=== PATIENT | female | born 1930 | race Caucasian/White ===

== ENCOUNTER 2016-10-04 22:23 | Inpatient (IN) ==
[2016-10-05 00:34] LABS: Basophils # 0.1 K/mcL (0.0-0.2); Basophils % 0.4 %; Eosinophils # 0.1 K/mcL (0.0-0.6); Eosinophils % 0.9 %; Hematocrit 38.4 % (35.3-44.9); Hemoglobin 12.7 g/dL (11.5-15.4); INR 1.1; Immature Granulocytes % 0.5 % (0-4); Lymphocytes # 1.4 K/mcL (0.6-4.6); Lymphocytes % 9.1 %; Mean Corpuscular HGB Conc 33.1 g/dL (31.6-35.5); Mean Corpuscular Hemoglobin 30.8 pg (28.0-33.3); Mean Corpuscular Volume 93.2 fL (83.0-100.0); Monocytes # 0.9 K/mcL (0.0-1.3); Monocytes % 5.6 %; Neutrophils # 12.6 K/mcL (1.6-8.9); Platelet Count 219 K/mcL (140-400); Prothrombin Time 12.1 Seconds (9.4-12.1); Red Blood Count 4.12 M/mcL (3.82-4.97); Red Cell Distribution Width 13.6 % (11.5-14.5); Segmented Neutrophils % 83.5 %
[2016-10-05 00:40] LABS: Calcium 9.5 mg/dL (8.6-10.8)
--- NOTE | 2016-10-05 01:33 | Emergency Department Note ---
Disposition Clinical Impression: Hip fracture Qualifiers: Encounter type: initial encounter Fracture type: closed Laterality: right Qualified Code(s): S72.001A - Fracture of unspecified part of neck of right femur, initial encounter for closed fracture Disposition: Home, Self-Care Condition: Good General Adult HPI - General Chief complaint: ED Fall Stated complaint: right hip injury Time Seen by Provider: 10/04/16 22:33 Source: EMS Limitations: no limitations - History of Present Illness HPI Narrative: Female patient who was injured during a transfer in a nursing facility. She complains of pain in the right hip. She has baseline dementia. She has no other pain in her back, denies anticoagulation use. No dyspnea on arrival. Vital signs were stable on arrival. Patient complains of pain isolated to the right hip. Pain Scale: 9 - Related Data Allergies Allergy/AdvReac Type Severity Reaction Status Date / Time aspirin Allergy Rash Verified 11/04/15 21:58 Chlorphentermine Allergy See Verified 11/04/15 21:58 Comments clarithromycin Allergy See Verified 11/04/15 21:58 Comments codeine Allergy See Verified 11/04/15 21:58 Comments dextromethorphan Allergy See Verified 11/04/15 21:58 Comments Erythromycin Base Allergy See Verified 11/04/15 21:58 Comments guaifenesin Allergy See Verified 11/04/15 21:58 Comments Iodinated Contrast- Oral and Allergy Itching Verified 11/04/15 21:58 IV Dye [Iodinated Contrast Media - IV Dye] Macrolide Antibiotics Allergy See Verified 11/04/15 21:58 Comments meperidine Allergy See Verified 11/04/15 21:58 Comments Morpholine Analogues Allergy See Verified 11/04/15 21:58 Comments naproxen Allergy See Verified 11/04/15 21:58 Comments NSAIDS (Non-Steroidal Allergy See Verified 11/04/15 21:58 Anti-Inflamma Comments Oxycodone Allergy See Verified 11/04/15 21:58 Comments Penicillins Allergy See Verified 11/04/15 21:58 Comments phenylpropanolamine Allergy See Verified 11/04/15 21:58 Comments Sulindac Allergy See Verified 11/04/15 21:58 Comments tolmetin Allergy See Verified 11/04/15 21:58 Comments All systems ED: reviewed and negative except as stated. Past Medical History - Past Medical History Medical history: Reports: arthritis, COPD, dementia, hypertension, osteoporosis Psychiatric history: Reports: anxiety - Social History Smoking Status: Never smoker Alcohol use: Reports: none Drug use: Reports: none Physical Exam - General Limitations: no limitations General appearance: alert, in no apparent distress - Head Head exam: atraumatic - Eye Eye exam: Present: normal appearance - ENT ENT exam: normal exam, normal oropharynx - Neck Neck exam: Present: normal inspection, full ROM - Chest Chest inspection: Present: normal inspection - Cardiovascular Cardiovascular exam: Present: regular rate, normal rhythm - Abdominal Exam Abdominal exam: Present: soft, Non-Tender - Extremities Exam Extremities exam: Present: tenderness - Expanded Lower Extremity Exam Hip/Pelvis exam: Present: tenderness Lower leg exam: Present: tenderness Neurovascular/Tendon exam: Present: normal capillary refill, pulse deficit Gait: not tested/not observed - Back Exam Back exam: Present: normal inspection, full ROM - Neurological Exam Neurological exam: Present: alert - Psychiatric Psychiatric exam: Present: normal affect, normal mood - Skin Skin exam: Present: warm, dry Course Vital Signs Temperature 98.1 F 10/04/16 22:31 Pulse Rate 64 10/04/16 22:31 Respiratory Rate 16 10/04/16 22:31 Blood Pressure 191/105 10/04/16 22:31 O2 Sat by Pulse Oximetry 96 10/04/16 22:31 Temperature 98.1 F 10/04/16 22:31 Pulse Rate 64 10/04/16 22:31 Respiratory Rate 16 10/04/16 22:31 Blood Pressure 191/105 10/04/16 22:31 O2 Sat by Pulse Oximetry 96 10/04/16 22:31 Oxygen Delivery Oxygen Delivery Room Air Medical Decision Making - [facility] Narrative Medical decision making narrative: Given the patient's history of dementia and the unclear circumstances regarding the injury. CT scan of the head, neck, chest, abdomen and pelvis were obtained. She does have findings incidentally of aortic aneurysm. There is no evidence of dissection. This does confirm a right intertrochanteric hip fracture. Plan to admit to the hospitalist service case discussed with orthopedics. Patient will remain nothing by mouth. - Medical Records Medical records reviewed: Yes I reviewed the patient's medical records. - Lab Data Lab results reviewed: Yes I reviewed the patient's lab results. Result diagrams: 10/04/16 23:52 10/04/16 23:52 Lab Results 10/04/16 10/04/16 10/04/16 Range/Units 23:52 23:52 23:52 WBC 15.1 H (4.3-11.1) K/mcL RBC 4.12 (3.82-4.97) M/mcL Hgb 12.7 (11.5-15.4) g/dL Hct 38.4 (35.3-44.9) % MCV 93.2 (83.0-100.0) fL MCH 30.8 (28.0-33.3) pg MCHC 33.1 (31.6-35.5) g/dL RDW 13.6 (11.5-14.5) % Plt Count 219 (140-400) K/mcL MPV 12.0 (9.4-12.4) fL Immature Gran % 0.5 (0-4) % Seg Neutrophils % 83.5 % Lymphocytes % 9.1 % Monocytes % 5.6 % Eosinophils % 0.9 % Basophils % 0.4 % Neutrophils # 12.6 H (1.6-8.9) K/mcL Lymphocytes # 1.4 (0.6-4.6) K/mcL Monocytes # 0.9 (0.0-1.3) K/mcL Eosinophils # 0.1 (0.0-0.6) K/mcL Basophils # 0.1 (0.0-0.2) K/mcL PT 12.1 (9.4-12.1) Seconds INR 1.1 Sodium 139 (136-145) mEq/L Potassium 4.0 (3.5-4.5) mEq/L Chloride 104 (98-109) mEq/L Carbon Dioxide 25 (19-29) mEq/L BUN 31 H (7-20) mg/dL Creatinine 1.30 H (0.57-1.11) mg/dL Est GFR ( Amer) 47 L (> 60) Est GFR (Non-Af Amer) 39 L (> 60) BUN/Creatinine Ratio 24 (6-26) Glucose 165 H (70-99) mg/dL Calculated Osmolality 298 (280-300) Calcium 9.5 (8.6-10.8) mg/dL
[2016-10-05] MEDS ORDERED: Naloxone 0.4 MG/ML INJ IVP PRN ×2 (05:14→20:30)
[2016-10-05] MEDS ORDERED: Acetaminophen 325 MG TABLET PO PRN ×2 (05:14→20:30)
[2016-10-05] MEDS ORDERED: Ondansetron 4 MG/2 ML VIAL IVP PRN ×2 (05:14→20:30)
[2016-10-05] MEDS ORDERED: 0.9 % Sodium Chloride 1,000 ML IVC SCH (05:15)
[2016-10-05] MEDS ORDERED: traMADol 50 MG TABLET PO PRN ×3 (05:21→20:30)
[2016-10-05] MEDS ORDERED: Bisacodyl 10 MG RECTAL SUPPOSITORY RC PRN ×2 (05:21→20:30)
[2016-10-05] MEDS ORDERED: *HR* LORazepam Oral Conc 2 MG/ML SL PRN ×3 (05:21→20:30)
[2016-10-05] MEDS ORDERED: *HR* LORazepam 0.5 MG TABLET SL PRN (05:45)
--- NOTE | 2016-10-05 05:50 | Internal Med History&Physical ---
Date of Encounter: 10/05/16 Time of Encounter: 05:00 Assessment and Plan (1) Hip fracture Current visit: Yes Status: Acute 1. Consult orthopedics. 2. Pain control. 3. PT/OT consults. 4. Surgical vs non-surgical options to be discussed with orthopedics. Qualifiers: Encounter type: initial encounter Fracture type: closed Laterality: right Qualified Code(s): S72.001A - Fracture of unspecified part of neck of right femur, initial encounter for closed fracture (2) Dementia Current visit: Yes Status: Chronic 1. Patient offers no history and does not seem to comprehend anything. 2. I will ask day team hospitalists to contact family to discuss baseline history and plan of care. Qualifiers: Alzheimer's disease onset: unspecified onset Dementia behavioral disturbance: without behavioral disturbance Qualified Code(s): G30.9 - Alzheimer's disease, unspecified; F02.80 - Dementia in other diseases classified elsewhere without behavioral disturbance (3) DVT prophylaxis Current visit: Yes Status: Acute 1. Heparin SQ. Internal Medicine - H&P: HPI Chief complaint: hip fracture Admitted From: Emergency Dept Plans for Post Hospital Care: Transfer Senior Living Facility History of present illness: Ms. Ruth is a 86 year old female who presented to the ER in transfer from a local assisted for concerns of hip fracture. She presented to the ER in pain and had extensive imaging studies which confirmed fracture of the right hip. She was in the process of being transferred between beds and/or equipment when she sustained the injury. There was no direct fall or trauma noted or conveyed to me. Patient has a history of dementia and does not provide any history. Upon my assessment of the patient, she is lying in bed comfortably. She is alert and completely disoriented. She is unable to state her name, time, place , and/or situation. She provides no history and is unable to provide any review of systems as well. I reviewed the available assisted records, which are very limited. I did find a DNR identification form which states she is DNR CC arrest with no intubation. Past Med Surg Social Fam HX - Past Medical History Source: old records reviewed, nursing notes reviewed Medical history: arthritis, COPD, dementia, hyperlipidemia, hypertension, osteoporosis Psychiatric history: anxiety, depression - Past Surgical History Surgical History: no surgical history - Social History Smoking Status: Never smoker Alcohol use: none Drug use: none Current living situation: ECF - Family History Mother History Unknown: Yes Father History Unknown: Yes Internal Medicine - H&P: Meds ALPRAZolam [Xanax 0.5 MG Tablet] 0.5 mg PO BID 10/05/16 [History] Acetaminophen [Tylenol 650mg SUPP] 650 mg RC Q6HR PRN 10/05/16 [History] Bisacodyl [Dulcolax] 10 mg RC DAILY PRN 10/05/16 [History] Diltiazem HCl [Diltiazem ER] 120 mg PO DAILY 10/05/16 [History] Furosemide [Lasix] 20 mg PO DAILY 10/05/16 [History] Hyoscyamine SL [Levsin SL] 0.125 mg SL Q2HR PRN 10/05/16 [History] LORazepam [Lorazepam Intensol] 0.5 mg SL Q4HR PRN 10/05/16 [History] Promethazine [Phenergan] 25 mg RC Q12HR PRN 10/05/16 [History] Sertraline [Zoloft] 25 mg PO DAILY 10/05/16 [History] Tramadol HCl [Ultram] 50 mg PO Q4HR PRN 10/05/16 [History] cloNIDine HCl [CloNIDine HCl] 0.1 mg PO Q6HR PRN 10/05/16 [History] Allergies aspirin Allergy (Verified 11/04/15 21:58) Rash Chlorphentermine Allergy (Verified 11/04/15 21:58) See Comments Patient unsure clarithromycin Allergy (Verified 11/04/15 21:58) See Comments Patient unsure codeine Allergy (Verified 11/04/15 21:58) See Comments patient unsure dextromethorphan Allergy (Verified 11/04/15 21:58) See Comments patient unsure Erythromycin Base Allergy (Verified 11/04/15 21:58) See Comments patient unsure guaifenesin Allergy (Verified 11/04/15 21:58) See Comments pt unsure Iodinated Contrast- Oral and IV Dye [Iodinated Contrast Media - IV Dye] Allergy (Verified 11/04/15 21:58) Itching pt unsure Macrolide Antibiotics Allergy (Verified 11/04/15 21:58) See Comments pt unsure meperidine Allergy (Verified 11/04/15 21:58) See Comments pt unsure Morpholine Analogues Allergy (Verified 11/04/15 21:58) See Comments pt unsure naproxen Allergy (Verified 11/04/15 21:58) See Comments pt unsure NSAIDS (Non-Steroidal Anti-Inflamma Allergy (Verified 11/04/15 21:58) See Comments pt unsure Oxycodone Allergy (Verified 11/04/15 21:58) See Comments pt unsure Penicillins Allergy (Verified 11/04/15 21:58) See Comments pt unsure phenylpropanolamine Allergy (Verified 11/04/15 21:58) See Comments pt unsure Sulindac Allergy (Verified 11/04/15 21:58) See Comments pt unsure tolmetin Allergy (Verified 11/04/15 21:58) See Comments pt unsure ROS unobtainable: due to mental status - Constitutional Vitals: Temp Pulse Resp BP Pulse Ox 97.8 F 66 15 157/83 97 10/05/16 02:20 10/05/16 02:20 10/05/16 02:20 10/05/16 02:20 10/05/16 02:20 General appearance: Present: A&O X 0, cooperative. Absent: answers questions appropriately Exam: alert and completely disoriented - Head Head exam: Present: atraumatic, normal inspection - Eye Eye exam: Present: EOMI, normal appearance, PERRL. Absent: scleral icterus Pupils: Present: normal accommodation - ENT ENT exam: Present: mucous membranes dry, normal exam - Neck Neck exam general surgery: Present: full ROM, supple. Absent: tenderness - Expanded Neck Exam Neck exam: Absent: carotid bruit - Respiratory Respiratory exam: Present: CTAB. Absent: chest wall tenderness, rales, respiratory distress, rhonchi, wheezes - Cardiovascular Cardiovascular exam: Present: RRR, +S1, +S2, systolic murmur (grade 1). Absent : diastolic murmur - GI/Abdominal GI/Abdominal exam: Present: normal bowel sounds, soft. Absent: guarding, hepatomegaly, mass, rebound, splenomegaly, tenderness - Extremities Exam Extremities exam: Present: tenderness (right hip), warm. Absent: calf tenderness, joint swelling, pedal edema - Back Exam Back exam: Absent: CVA tenderness (L), CVA tenderness (R), paraspinal tenderness - Neurological Exam Neurological exam: Present: alert, no focal deficits. Absent: oriented X3 - Psychiatric Psychiatric exam: Present: normal affect, normal mood Additional comments: confused and disoriented - Skin Skin exam: Present: dry, warm. Absent: rash Internal Med - H&P Results - Labs CBC & Chem 7: 10/04/16 23:52 10/04/16 23:52 - Diagnostic Studies Other Images Status: image reviewed by me (Hip xrays: right hip fracture)
[2016-10-05] MEDS ORDERED: *HR* Heparin 5,000 UNIT/ML VIAL SQ SCH (06:00)
--- NOTE | 2016-10-05 06:45 | Orthopedic Consult Note ---
Date of Encounter: 10/05/16 Time of Encounter: 06:42 History of Present Illness Chief complaint: Right hip soreness HPI: Ms. Ruth is a 86 year old female was unable to offer me any adequate history as to what happened. She complains of some right hip soreness. She states that she struck it on a table. She does have significant dementia. For complete history and physical data please refer the completed portion of medical record. Pertinent orthopedic examination reveals some minimal shortening of the right lower extremity. There is no excessive rotation. Distal neurosensory exam appears to be grossly intact. I reviewed multiple imaging studies. X-rays of the right hip reveals a comminuted and displaced intertrochanteric fracture. Impression: Displaced Intertrochanteric fracture right proximal femur Recommendation: This is a surgical fracture and I recommend proceeding with intramedullary nailing of the right hip. I will need to discuss the possible surgical intervention with the patient's power of civil rights attorney. I will make contact today and if this successful proceed with surgery as soon as operating time is available. Thank you very much for allowing me to seen care for Mrs Ruth. Sincerely , Reed Tipton,DO Past Med Surg Social Fam HX - Past Medical History Medical history: arthritis, COPD, dementia, hyperlipidemia, hypertension, osteoporosis Psychiatric history: anxiety, depression - Past Surgical History Surgical History: no surgical history - Social History Smoking Status: Never smoker Alcohol use: none Drug use: none - Family History Mother History Unknown: Yes Father History Unknown: Yes Medications and Allergies ALPRAZolam [Xanax 0.5 MG Tablet] 0.5 mg PO BID 10/05/16 [History] Acetaminophen [Tylenol 650mg SUPP] 650 mg RC Q6HR PRN 10/05/16 [History] Bisacodyl [Dulcolax] 10 mg RC DAILY PRN 10/05/16 [History] Diltiazem HCl [Diltiazem ER] 120 mg PO DAILY 10/05/16 [History] Furosemide [Lasix] 20 mg PO DAILY 10/05/16 [History] Hyoscyamine SL [Levsin SL] 0.125 mg SL Q2HR PRN 10/05/16 [History] LORazepam [Lorazepam Intensol] 0.5 mg SL Q4HR PRN 10/05/16 [History] Promethazine [Phenergan] 25 mg RC Q12HR PRN 10/05/16 [History] Sertraline [Zoloft] 25 mg PO DAILY 10/05/16 [History] Tramadol HCl [Ultram] 50 mg PO Q4HR PRN 10/05/16 [History] cloNIDine HCl [CloNIDine HCl] 0.1 mg PO Q6HR PRN 10/05/16 [History] Allergies aspirin Allergy (Verified 11/04/15 21:58) Rash Chlorphentermine Allergy (Verified 11/04/15 21:58) See Comments Patient unsure clarithromycin Allergy (Verified 11/04/15 21:58) See Comments Patient unsure codeine Allergy (Verified 11/04/15 21:58) See Comments patient unsure dextromethorphan Allergy (Verified 11/04/15 21:58) See Comments patient unsure Erythromycin Base Allergy (Verified 11/04/15 21:58) See Comments patient unsure guaifenesin Allergy (Verified 11/04/15 21:58) See Comments pt unsure Iodinated Contrast- Oral and IV Dye [Iodinated Contrast Media - IV Dye] Allergy (Verified 11/04/15 21:58) Itching pt unsure Macrolide Antibiotics Allergy (Verified 11/04/15 21:58) See Comments pt unsure meperidine Allergy (Verified 11/04/15 21:58) See Comments pt unsure Morpholine Analogues Allergy (Verified 11/04/15 21:58) See Comments pt unsure naproxen Allergy (Verified 11/04/15 21:58) See Comments pt unsure NSAIDS (Non-Steroidal Anti-Inflamma Allergy (Verified 11/04/15 21:58) See Comments pt unsure Oxycodone Allergy (Verified 11/04/15 21:58) See Comments pt unsure Penicillins Allergy (Verified 11/04/15 21:58) See Comments pt unsure phenylpropanolamine Allergy (Verified 11/04/15 21:58) See Comments pt unsure Sulindac Allergy (Verified 11/04/15 21:58) See Comments pt unsure tolmetin Allergy (Verified 11/04/15 21:58) See Comments pt unsure All Systems Reviewed: A 10-system review of systems was performed and is negative for pertinent findings except as documented above in the HPI. Physical Exam - Constitutional Vitals: Temp Pulse Resp BP Pulse Ox 97.8 F 66 15 157/83 97 10/05/16 02:20 10/05/16 02:20 10/05/16 02:20 10/05/16 02:20 10/05/16 02:20 Results - Labs Result Diagrams: 10/04/16 23:52 10/04/16 23:52 Labs: Abnormal lab results WBC 15.1 K/mcL (4.3-11.1) H 10/04/16 23:52 Neutrophils # 12.6 K/mcL (1.6-8.9) H 10/04/16 23:52 BUN 31 mg/dL (7-20) H 10/04/16 23:52 Creatinine 1.30 mg/dL (0.57-1.11) H 10/04/16 23:52 Est GFR ( Amer) 47 (> 60) L 10/04/16 23:52 Est GFR (Non-Af Amer) 39 (> 60) L 10/04/16 23:52 Glucose 165 mg/dL (70-99) H 10/04/16 23:52 All other labs normal. - Diagnostic results Hip AP/Lateral x-ray: image reviewed Consult Discharge Plan - Plan Referrals: NO,PCP [Primary Care Provider] -
[2016-10-05] MEDS ORDERED: ALPRAZolam 0.5 MG TABLET PO SCH (09:00)
[2016-10-05] MEDS ORDERED: Diltiazem CD (24hr) 120 MG CAPSULE PO SCH (09:00)
[2016-10-05 09:32] LABS: Bilirubin,Urine Negative (Negative); Blood,Urine Negative (Negative); Clarity,Urine Clear (Clear); Color,Urine Yellow (Yellow); Glucose,Urine (UA) Normal (Normal); Ketones,Urine Negative (Negative); Leukocyte Esterase,Urine Negative (Negative); Nitrite,Urine Negative (Negative); PH,Urine 6.5 pH Units (5.0-8.0); Protein,Urine 30 mg/dL (Neg-Trace); Specific Gravity,Urine 1.022 (1.010-1.025); Urobilinogen,Urine Normal (Normal)
[2016-10-05 09:48] LABS: Bacteria,Urine Few per hpf (None-Few); RBC,Urine 0-3 per hpf (0-3); Squamous Epithelial Cell,Urine Few per lpf (None-Few); WBC,Urine 0-3 per hpf (0-3)
[2016-10-05] MEDS ORDERED: *HR* HYDROmorphone (PF) 1 MG/ML SYRINGE IVP ONE (12:52)
[2016-10-05] MEDS ORDERED: *HR* HYDROmorphone (PF) 1 MG/ML SYRINGE IVP PRN ×3 (13:59→20:30)
--- NOTE | 2016-10-05 15:34 | Event Note ---
Date of Encounter: 10/05/16 Time of Encounter: 08:35 Patient is disoriented. Denies any pain at this time. Awaiting surgery planned for later today. Patient has had no recent hospitalizations according to her son. She has apparently been in good health overall. Does have history of COPD and hypertension. Will place patient on bronchodilators as needed.
[2016-10-05] MEDS ORDERED: Ipratropium/Albuterol Neb 3 ML IH PRN ×2 (15:36→20:30)
[2016-10-05] MEDS ORDERED: *HR* Propofol 200 MG/20 ML VIAL IVP ONE (16:49)
[2016-10-05] MEDS ORDERED: Lidocaine -MPF 2% 2 ML VIAL ONE (16:50)
--- NOTE | 2016-10-05 17:22 | Anesthesia Evaluation PreOp ---
Date of Encounter: 10/05/16 Time of Encounter: 17:20 - Past History Planned Operation: R-TFNA Cardiac History: CHF (? 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: Other (Anxiety/Depression maintained on Xanax, Lorazepam, Zoloft) Other Medical History: Other (Osteoporosis.) Anesthesia History: Past Anesthesia (No surgical Hx per Internal Med H&P) Alcohol Use: none Drug use: none Medications and Allergies ALPRAZolam [Xanax 0.5 MG Tablet] 0.5 mg PO BID 10/05/16 [History] Acetaminophen [Tylenol 650mg SUPP] 650 mg RC Q6HR PRN 10/05/16 [History] Bisacodyl [Dulcolax] 10 mg RC DAILY PRN 10/05/16 [History] Diltiazem HCl [Diltiazem ER] 120 mg PO DAILY 10/05/16 [History] Furosemide [Lasix] 20 mg PO DAILY 10/05/16 [History] Hyoscyamine SL [Levsin SL] 0.125 mg SL Q2HR PRN 10/05/16 [History] LORazepam [Lorazepam Intensol] 0.5 mg SL Q4HR PRN 10/05/16 [History] Promethazine [Phenergan] 25 mg RC Q12HR PRN 10/05/16 [History] Sertraline [Zoloft] 25 mg PO DAILY 10/05/16 [History] Tramadol HCl [Ultram] 50 mg PO Q4HR PRN 10/05/16 [History] cloNIDine HCl [CloNIDine HCl] 0.1 mg PO Q6HR PRN 10/05/16 [History] Allergies aspirin Allergy (Verified 11/04/15 21:58) Rash Chlorphentermine Allergy (Verified 11/04/15 21:58) See Comments Patient unsure clarithromycin Allergy (Verified 11/04/15 21:58) See Comments Patient unsure codeine Allergy (Verified 11/04/15 21:58) See Comments patient unsure dextromethorphan Allergy (Verified 11/04/15 21:58) See Comments patient unsure Erythromycin Base Allergy (Verified 11/04/15 21:58) See Comments patient unsure guaifenesin Allergy (Verified 11/04/15 21:58) See Comments pt unsure Iodinated Contrast- Oral and IV Dye [Iodinated Contrast Media - IV Dye] Allergy (Verified 11/04/15 21:58) Itching pt unsure Macrolide Antibiotics Allergy (Verified 11/04/15 21:58) See Comments pt unsure meperidine Allergy (Verified 11/04/15 21:58) See Comments pt unsure Morpholine Analogues Allergy (Verified 11/04/15 21:58) See Comments pt unsure naproxen Allergy (Verified 11/04/15 21:58) See Comments pt unsure NSAIDS (Non-Steroidal Anti-Inflamma Allergy (Verified 11/04/15 21:58) See Comments pt unsure Oxycodone Allergy (Verified 11/04/15 21:58) See Comments pt unsure Penicillins Allergy (Verified 11/04/15 21:58) See Comments pt unsure phenylpropanolamine Allergy (Verified 11/04/15 21:58) See Comments pt unsure Sulindac Allergy (Verified 11/04/15 21:58) See Comments pt unsure tolmetin Allergy (Verified 11/04/15 21:58) See Comments pt unsure - Meds/Allergy Pre-op Review Medications Reviewed: Yes Allergies Reviewed: Yes Beta Blockers on Current Med List: No Anesthesia Results - Labs 10/04/16 23:52 10/04/16 23:52 Laboratory Results Laboratory Tests 10/04/16 10/04/16 23:52 23:52 PT 12.1 INR 1.1 Est GFR (Non-Af Amer) 39 L Impressions Hip X-Ray 10/04/16 22:55 IMPRESSION: Intratrochanteric right hip fracture. D/ / John David MD / John David MD Interpreting Provider: John David MD Abdomen/Pelvis CT 10/04/16 23:15 IMPRESSION: Comminuted acute proximal right femoral intertrochanteric fracture. 5.1 cm infrarenal abdominal aortic aneurysm previously 4.5 cm in 2015. See below recommendation. RECOMMENDATIONS: Managing Abdominal Aortic Aneurysms 2.6-2.9 cm: 5 year follow up. 3.0-3.4 cm: 3 year follow up 3.5-3.9 cm: 1 year follow up. 4.0-4.4 cm: 1 year follow up. Recommend vascular consultation. 4.5-5.4 cm: 6 month follow up. Recommend vascular consultation. Greater than or equal to 5.5 cm: Referral to vascular surgeon. Reference: Rahul et al. The care of patients with an abdominal aortic aneurysm: The Society of Vascular Surgery practice guidelines. Journal of Vascular Surgery. Vol 50, Number 85. Leti et al. Managing Incidental Findings on Abdominal and Pelvic CT and MRI, Part 2: White Paper of the ACR Incidental Findings Committee II on Vascular Findings. J Am Dana Radiol 2013;10:789-794 D/ / Radha Block Cha, MD / Radha Block Cha, MD Interpreting Provider: Radha Block Cha, MD Cervical Spine CT 10/04/16 23:15 IMPRESSION: No acute abnormality of the cervical spine. D/ / John David MD / John David MD Interpreting Provider: John David MD Chest CT 10/04/16 23:15 IMPRESSION: 1. Negative for fracture. 2. Distal descending thoracic aortic aneurysm. D/ / John David MD / John David MD Interpreting Provider: John David MD Head CT 10/04/16 23:15 IMPRESSION: No acute intracranial abnormality. Remote right orbital blowout fracture. Unchanged opacification of the right maxillary sinus. D/ / David Belle MD / David Belle MD Interpreting Provider: David Belle MD Lumbar Spine CT 10/04/16 23:15 IMPRESSION: Grade 1 spondylolisthesis at L5-S1 secondary to bilateral L5 pars interarticularis defects. No evidence of an acute injury. Diffuse aneurysmal dilatation of the lower thoracic and abdominal aorta, incompletely visualized. This will be described on the concurrent CT chest and abdomen. D/ / David Belle MD / David Belle MD Interpreting Provider: David Belle MD Thoracic Spine CT 10/04/16 23:15 IMPRESSION: No acute abnormality of the thoracic spine. D/ / Radha Block Cha, MD / Radha Block Cha, MD Interpreting Provider: Radha Block Cha, MD - Imaging EKG: image reviewed (75bpm SR, incomplete RBBB) Anesthesia Exam Vital Signs Temp Pulse Resp BP Pulse Ox 10/05/16 14:52 97.9 F 68 18 155/73 95 10/05/16 12:01 98.7 F 76 18 179/81 97 10/05/16 07:54 97.2 F L 76 18 118/64 97 10/05/16 02:20 97.8 F 66 15 157/83 97 10/05/16 01:39 18 192/102 10/04/16 22:31 98.1 F 64 16 191/105 96 Intake and Output 10/05/16 10/05/16 10/05/16 07:59 15:59 23:59 Intake Total 0 / 0 0 / 0 Output Total 400 / 400 500 / 500 Balance -400 / -400 -500 / -500 Intake: Oral 0 / 0 0 / 0 Output: Urine 0 / 0 Catheter 400 / 400 500 / 500 Other: Meal NPO Weight 60.895 kg Patient Weight 10/05/16 23:59 Weight 60.895 kg Height: 5'1" Weight: 134# BMI = 25.4 NPO (# of Hours): MNoc - HEENT Pupil (Motor): Pupils equal, EOMI Mallampati: II Teeth: Normal Oral Opening: Greater than 3 - 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 LOC: Disoriented, Unable to assess 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 Motor: Normal RUE, Normal LUE, Normal RLE, Normal LLE, Normal Face 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 Ansley Beckman MD
[2016-10-05] MEDS ORDERED: *HR* FentaNYL (PF) 100 MCG/2 ML VIAL ONE ×2 (17:30→19:06)
[2016-10-05] MEDS ORDERED: Dexamethasone 4 MG/ML VIAL ONE (17:32)
[2016-10-05] MEDS ORDERED: Ondansetron 4 MG/2 ML VIAL ONE (17:32)
[2016-10-05] MEDS ORDERED: Acetaminophen IV 1,000 MG/100 ML INFUS..BTL ONE (17:52)
[2016-10-05] MEDS ORDERED: Clindamycin 600 MG/50 ML 600 MG/50 ML IV.SOLN IVPB ONE (18:04)
[2016-10-05] MEDS ORDERED: EPHEDrine 50 MG/ML VIAL ONE (18:27)
[2016-10-05] MEDS ORDERED: *HR* Labetalol 20 MG/4 ML SYRINGE IVP PRN (18:39)
[2016-10-05] MEDS ORDERED: Dexamethasone 4 MG/ML VIAL IVP ONE (18:39)
[2016-10-05] MEDS ORDERED: Ondansetron 4 MG/2 ML VIAL IVP ONE (18:39)
--- NOTE | 2016-10-05 19:52 | Operative Note ---
Date of procedure: 10/05/16 Pre-op diagnosis: Intertrochanteric fracture right hip Post-op diagnosis: same Procedure: #1. Intramedullary nailing right hip #2. Fluoroscopic guidance for IM nailing right hip Implants: Synthes 10 mm x 130 degree angle by 170 mm TFNA, 100 mm x 11 mm helical blade and a 34 mm x 5.0 mm distal locking screw Complications: None Anesthesia: GETA Surgeon: Reed Tipton Estimated blood loss (cc): 100 Specimen: None Condition: stable Disposition: PACU Procedure in Detail: Gross Findings: Preoperative x-rays showed a complex comminuted intertrochanteric fracture of the right proximal femur in this 86-year-old woman. Intraoperative findings were as anticipated with a markedly comminuted greater trochanter and a avulsion of the lesser trochanter. the right hip was treated by placement of a trochanteric femoral nail with fluoroscopic guidance verifying excellent reduction of the fracture and a well-positioned trochanteric femoral nail. No complicating features were encountered. Procedure: Patient was taken the operating room and while on the hospital bed was administered a general anesthesia. With adequate level of anesthesia obtained the patient was then transferred to the [facility] fracture table. The right lower extremity was placed longitudinal traction the left lower extremity was positioned out of harm's way and well leg fajardo. At this time fluoroscopy was introduced and utilized to guide the preliminary reduction which was accomplished with a combination of traction and internal rotation as well as adduction. Once a adequate reduction was obtained right hip was prepped and draped in normal standard fashion for surgery. Approximate 4 cm incision was created above the level of the trochanter and dissection was carried through the subcutaneous tissues down the level of the fascia pierre which was split. Fracture hematoma was encountered and evacuated. Examination revealed marked comminution of the greater trochanter. A wire was passed right through the fracture site and down the femur. The trochanter was then opened up with the coring type reamer. This is followed by taking the selected nail on the insertion jig and passing it over the wire and across the fracture site. The wire was removed. The nail was seated. The 130 degree guide was then placed and a second approximate 4 cm incision was created and the guide was passed up against the lateral femoral cortex. With fluoroscopic guidance and verification a guidewire was placed into the the femoral head in a central position verified with multiplane fluoroscopy. The length was measured. Neck was reamed. The 100 mm helical blade was then placed over the wire and impacted into sat firmly in the subchondral bone of the femoral head. The helical blade was then locked proximally and the locking screw backed off to allow for compression. The fracture was then compressed with excellent reduction and compression noted. The helical blade guide was then removed. The distal locking screw guide was then placed and with fluoroscopic guidance and verification a distal locking screw was placed. Multiplane fluoroscopy was used to verify that the fracture remained well reduced and the implants were in excellent position. Once verified the wounds were irrigated and closed. Fascia was closed with the #1 Vicryl. The deep subtendinous tissue and immediately subtendinous tissue then closed with the combination of #1 and 0 Vicryl. Skin was then closed with running 2-0 strata fix. skin glue was now applied. Operative foam was applied and secured. Patient was then transferred from the fracture table to the hospital bed and then transported to the postanesthesia care unit in stable and satisfactory condition. All sponge and needle evidence for counts are correct. No specimens were sent for pathology.
--- NOTE | 2016-10-05 20:14 | Anesthesia Evaluation Post Op ---
Date of Encounter: 10/05/16 Time of Encounter: 20:13 - Vital Signs Vital Signs: Vital Signs/O2 Sat, Most Current Temp Pulse Resp BP Pulse Ox 97.9 F 101 12 146/73 93 10/05/16 19:47 10/05/16 20:06 10/05/16 20:06 10/05/16 20:06 10/05/16 20:06 - Lungs Lungs: Clear Ascult./Percussion - Airway Airway: Non-obstructed - Cardiovascular Regular Rate - Mental Status Mental Status: Asleep with brisk response to light stimulation, Baseline Status (pt w/ underlying dementia) - Pain Pain Scale: 0 Pain Scale used: Numeric (1 - 10) - Nausea Vomiting Nausea Vomiting: Not Present - Hydration Hydration: NPO, Lee catheter - Discharge PostOp Status: Transfer Patient to floor
[2016-10-05] MEDS: 0.9 % Sodium Chloride 1,000 ML IVC SCH (22:35)
[2016-10-05] MEDS: ALPRAZolam 0.5 MG TABLET PO SCH (22:35)
[2016-10-06] MEDS: Clindamycin 600 MG/50 ML 600 MG/50 ML IV.SOLN IVPB SCH ×2 (02:53→08:22)
[2016-10-06] MEDS ORDERED: *HR* Enoxaparin 40 MG/0.4 ML SYRINGE SQ SCH (06:00)
[2016-10-06 06:45] LABS: Albumin/Globulin Ratio 0.9 (1.1-2.2); Bilirubin,Total 0.3 mg/dL (0.2-1.2); Calcium 8.5 mg/dL (8.6-10.8); Globulin 3.2 g/dL (2.4-3.5); Magnesium 1.9 mg/dL (1.6-2.6); Potassium 4.4 mEq/L (3.5-4.5); Total Protein 6.2 g/dL (6.0-8.3)
[2016-10-06 06:54] LABS: Hematocrit 33.8 % (35.3-44.9); Immature Granulocytes % 0.3 % (0-4); Lymphocytes # 0.4 K/mcL (0.6-4.6); Lymphocytes % 5.6 %; Mean Corpuscular Hemoglobin 30.1 pg (28.0-33.3); Mean Corpuscular Volume 94.2 fL (83.0-100.0); Mean Platelet Volume 12.3 fL (9.4-12.4); Monocytes # 0.4 K/mcL (0.0-1.3); Monocytes % 4.8 %; Neutrophils # 6.8 K/mcL (1.6-8.9); Platelet Count 186 K/mcL (140-400); Red Blood Count 3.59 M/mcL (3.82-4.97); Red Cell Distribution Width 13.4 % (11.5-14.5); Segmented Neutrophils % 89.3 %
[2016-10-06 06:55] LABS: Hemoglobin 10.8 g/dL (11.5-15.4)
[2016-10-06] MEDS: ALPRAZolam 0.5 MG TABLET PO SCH ×2 (08:22→20:43)
[2016-10-06] MEDS: Diltiazem CD (24hr) 120 MG CAPSULE PO SCH (08:22)
[2016-10-06] MEDS ORDERED: *HR* Heparin 5,000 UNIT/ML VIAL SQ SCH (09:00)
[2016-10-06] MEDS ORDERED: traMADol 50 MG TABLET PO PRN (11:16)
--- NOTE | 2016-10-06 13:38 | Internal Med Progress Note ---
Date of Encounter: 10/06/16 Time of Encounter: 10:00 - Assessment and plan (1) Hip fracture Current Visit: Yes Status: Acute Assessment and plan: Status post-intramedullary nailing. Continue postoperative care and physical therapy. Await placement to skilled rehabilitation once cleared by orthopedics. Pain control with Ultram. Moderate risk for complications. DVT prophylaxis with lovenox. Qualifiers: Encounter type: initial encounter Fracture type: closed Laterality: right Qualified Code(s): S72.001A - Fracture of unspecified part of neck of right femur, initial encounter for closed fracture (2) Chronic kidney disease, stage III (moderate) Current Visit: Yes Status: Chronic Assessment and plan: Creatinine is at patient's baseline (3) Dementia Current Visit: Yes Status: Chronic Assessment and plan: At risk for delirium. Monitor closely for agitation. COntinue xanax and ativan prn as the patient takes these medications at home. Qualifiers: Alzheimer's disease onset: unspecified onset Dementia behavioral disturbance: without behavioral disturbance Qualified Code(s): G30.9 - Alzheimer's disease, unspecified; F02.80 - Dementia in other diseases classified elsewhere without behavioral disturbance - Subjective Interval history: Patient is asleep and appears comfortable. He seemed to katharine. Denies any pain at this time. Underwent surgery yesterday with intramedullary nailing of the right hip. Tolerated procedure well and has been doing well postoperatively. - Constitutional Vitals: Temp Pulse Resp BP Pulse Ox 98.5 F 69 16 138/53 99 10/06/16 12:20 10/06/16 12:20 10/06/16 12:20 10/06/16 12:20 10/06/16 12:20 General appearance: Present: A&O X 0, cooperative. Absent: answers questions appropriately - Neck Neck exam general surgery: Present: supple, trachea midline. Absent: lymphadenopathy - Respiratory Respiratory exam: Present: CTAB. Absent: accessory muscle use, rales, rhonchi, wheezes - Cardiovascular Cardiovascular exam: Present: RRR, +S1, +S2. Absent: diastolic murmur, gallop, rubs, systolic murmur - Extremities Exam Extremities exam: Present: warm, radial pulses palpable and symetrical. Absent : calf tenderness, cyanotic, pedal edema Additional comments: Mild tenderness in the right hip region - Neurological Exam Neurological exam: Present: no focal deficits. Absent: facial droop, speech deficit - Skin Skin exam: Present: dry, intact Internal Medicine: Result - Labs CBC & Chem 7: 10/06/16 05:27 10/06/16 05:27 - ABG Interpretation ABG results: PT/INR, D-dimer PT 12.1 Seconds (9.4-12.1) 10/04/16 23:52 - VTE Documentation of Mechanical Device: Intermittent pneumatic compression device Consult Discharge Plan - Plan Referrals: NO,PCP [Primary Care Provider] -
[2016-10-06] MEDS: 0.9 % Sodium Chloride 1,000 ML IVC SCH (15:21)
--- NOTE | 2016-10-06 19:40 | Orthopedics Progress Note ---
Date of Encounter: 10/06/16 Time of Encounter: 19:37 Subjective Principal diagnosis: Right hip fracture Interval history: 10/06/2016. Patient is POD #1 IM nailing right hip. Denies any acute changes. Hip described as sore. Vital signs are stable, patient is afebrile. Hip dressings are dry. There is some anticipated edema in the thigh. Hemoglobin is greater than 10. White count is normal. Impression: POD #1 IM nailing right hip, orthopedic status stable. Recommendation: Orthopedically the patient is stable for discharge at any point in time. She has no limitations. She can be weightbearing as tolerated without any hip precautions. I have started her on Lovenox 30 mg daily for VTE prophylaxis. Can be discharged at any time from my point of view. We will need follow up with me in approximately 4 weeks' time unless a problem arises. Objective Vital signs: Vital Signs Temp Pulse Resp BP Pulse Ox 10/06/16 19:05 99.4 F 87 16 122/77 96 10/06/16 15:50 97.7 F 86 17 100/61 93 10/06/16 12:20 98.5 F 69 16 138/53 99 Intake and Output 10/06/16 10/06/16 10/06/16 07:59 15:59 23:59 Intake Total 1240 / 1240 120 / 120 Output Total 200 / 200 0 / 0 Balance 1040 / 1040 120 / 120 Intake: IV Fluids 1000 / 1000 0.9 % Sodium Chloride 1, 1000 / 1000 000 ML @ 75 mls/hr IVC . [id number] [facility] Rx#: [id number] Oral 240 / 240 120 / 120 Output: Catheter 200 / 200 0 / 0 Other: Meal Lunch Dinner Percent of Meal Consumed 100% 20% - Labs CBC & BMP: 10/06/16 05:27 10/06/16 05:27 Labs: Abnormal lab results RBC 3.59 M/mcL (3.82-4.97) L 10/06/16 05:27 Hgb 10.8 g/dL (11.5-15.4) L D 10/06/16 05:27 Hct 33.8 % (35.3-44.9) L 10/06/16 05:27 Lymphocytes # 0.4 K/mcL (0.6-4.6) L 10/06/16 05:27 BUN 24 mg/dL (7-20) H 10/06/16 05:27 Creatinine 1.18 mg/dL (0.57-1.11) H 10/06/16 05:27 Est GFR ( Amer) 52 (> 60) L 10/06/16 05:27 Est GFR (Non-Af Amer) 43 (> 60) L 10/06/16 05:27 Glucose 220 mg/dL (70-99) H 10/06/16 05:27 Calcium 8.5 mg/dL (8.6-10.8) L 10/06/16 05:27 Albumin 3.0 g/dL (3.5-5.0) L 10/06/16 05:27 Albumin/Globulin Ratio 0.9 (1.1-2.2) L 10/06/16 05:27 Urine Protein 30 mg/dL (Neg-Trace) H 10/05/16 06:45 - VTE Documentation of Mechanical Device: Intermittent pneumatic compression device Consult Discharge Plan - Plan Referrals: NO,PCP [Primary Care Provider] -
[2016-10-07] MEDS: 0.9 % Sodium Chloride 1,000 ML IVC SCH (05:35)
[2016-10-07] MEDS ORDERED: *HR* Enoxaparin 30 MG/0.3 ML SYRINGE SQ SCH (06:00)
[2016-10-07] MEDS: ALPRAZolam 0.5 MG TABLET PO SCH (07:58)
[2016-10-07] MEDS: Diltiazem CD (24hr) 120 MG CAPSULE PO SCH (07:58)
[2016-10-07 08:11] VITALS: BP 161/76
--- NOTE | 2016-10-07 10:24 | Discharge Summary ---
Date of Encounter: 10/07/16 Time of Encounter: 10:21 - Discharge Diagnosis (1) Hip fracture Priority: Primary Status: Acute Comments: s/p IM nailing Qualifiers: Encounter type: initial encounter Fracture type: closed Laterality: right Qualified Code(s): S72.001A - Fracture of unspecified part of neck of right femur, initial encounter for closed fracture (2) Chronic kidney disease, stage III (moderate) Priority: Secondary Status: Chronic (3) Dementia Priority: Secondary Status: Chronic Qualifiers: Dementia type: unspecified type Dementia behavioral disturbance: without behavioral disturbance Qualified Code(s): F03.90 - Unspecified dementia without behavioral disturbance - Discharge Medications Prescriptions: LORazepam [Lorazepam Intensol] 0.5 mg SL Q4HR PRN #5 ml PRN Reason: Anxiety Tramadol HCl [Ultram] 50 mg PO Q4HR PRN #20 PRN Reason: Pain ALPRAZolam [Xanax 0.5 MG Tablet] 0.5 mg PO BID #14 Home Medications: Acetaminophen [Tylenol 650mg SUPP] 650 mg RC Q6HR PRN 10/05/16 [History] Bisacodyl [Dulcolax] 10 mg RC DAILY PRN 10/05/16 [History] Diltiazem HCl [Diltiazem ER] 120 mg PO DAILY 10/05/16 [History] Furosemide [Lasix] 20 mg PO DAILY 10/05/16 [History] Hyoscyamine SL [Levsin Sl] 0.125 mg SL Q2HR PRN 10/05/16 [History] Promethazine [Phenergan] 25 mg RC Q12HR PRN 10/05/16 [History] Sertraline [Zoloft] 25 mg PO DAILY 10/05/16 [History] cloNIDine HCl [CloNIDine HCl] 0.1 mg PO Q6HR PRN 10/05/16 [History] ALPRAZolam [Xanax 0.5 MG Tablet] 0.5 mg PO BID #14 10/07/16 [Rx] Enoxaparin [Lovenox] 30 mg SQ 0600 14 Days 10/07/16 [Rx] LORazepam [Lorazepam Intensol] 0.5 mg SL Q4HR PRN #5 ml 10/07/16 [Rx] Tramadol HCl [Ultram] 50 mg PO Q4HR PRN #20 10/07/16 [Rx] Allergies/Adverse Reactions: Allergies aspirin Allergy (Verified 11/04/15 21:58) Rash Chlorphentermine Allergy (Verified 11/04/15 21:58) See Comments Patient unsure clarithromycin Allergy (Verified 11/04/15 21:58) See Comments Patient unsure codeine Allergy (Verified 11/04/15 21:58) See Comments patient unsure dextromethorphan Allergy (Verified 11/04/15 21:58) See Comments patient unsure Erythromycin Base Allergy (Verified 11/04/15 21:58) See Comments patient unsure guaifenesin Allergy (Verified 11/04/15 21:58) See Comments pt unsure Iodinated Contrast- Oral and IV Dye [Iodinated Contrast Media - IV Dye] Allergy (Verified 11/04/15 21:58) Itching pt unsure Macrolide Antibiotics Allergy (Verified 11/04/15 21:58) See Comments pt unsure meperidine Allergy (Verified 11/04/15 21:58) See Comments pt unsure Morpholine Analogues Allergy (Verified 11/04/15 21:58) See Comments pt unsure naproxen Allergy (Verified 11/04/15 21:58) See Comments pt unsure NSAIDS (Non-Steroidal Anti-Inflamma Allergy (Verified 11/04/15 21:58) See Comments pt unsure Oxycodone Allergy (Verified 11/04/15 21:58) See Comments pt unsure Penicillins Allergy (Verified 11/04/15 21:58) See Comments pt unsure phenylpropanolamine Allergy (Verified 11/04/15 21:58) See Comments pt unsure Sulindac Allergy (Verified 11/04/15 21:58) See Comments pt unsure tolmetin Allergy (Verified 11/04/15 21:58) See Comments pt unsure Date of admission: 10/06/16 08:57 Primary care physician: PCP NO Consults: 10/06/16 15:26 Consult to Physical Therapy [CONS] Stat Comment: Evaluate, develop and implement POC Reason for Consult: Rehab Discharging clinician: Sia Faulkner Anticipated date of discharge: 10/07/16 - Patient Status Disposition: Transfer SNF Condition: Good Functional capacity at discharge: uses cane/walker Overall status at discharge: patient is progressing back to baseline - Discharge Instructions Instructions: Open Reduction and Internal Fixation of a Hip Fracture (DC) Follow Up With: NO,PCP [Primary Care Provider] - Reed Tipton DO [Non-Partnered Physician] - (4 weeks) Forms: ED Satisfaction Letter - Diet and Activity Activity: as per physical therapy Diet: diabetic diet, low fat, low cholesterol, low salt diet Hospital course: Ms. Ruth is a 86 year old female patient with a history of COPD, hypertension, dementia, hyperlipidemia was admitted here with right-sided closed hip fracture. She was evaluated by orthopedics and recommended intramedullary nailing. Patient underwent the procedure on 10/05/16. Since then she has been doing well postoperatively. She has received physical therapy and [facility]. She will be on anticoagulation with subcutaneous Lovenox for the next 7-14 days. She will follow up with orthopedics in 4 weeks. - Time Spent with Patient Total time spent providing and/or coordinating discharge services: Greater than 30 minutes (35 min) - Constitutional Vitals: Temp Pulse Resp BP Pulse Ox 97.8 F 81 16 161/76 95 10/07/16 08:04 10/07/16 08:04 10/07/16 08:04 10/07/16 08:04 10/07/16 08:04 General appearance: Present: A&O X 0, cooperative, answers questions appropriately - Neck Neck exam general surgery: Present: supple, trachea midline. Absent: lymphadenopathy - Respiratory Respiratory exam: Present: CTAB. Absent: accessory muscle use, rales, rhonchi, wheezes - Cardiovascular Cardiovascular exam: Present: RRR, +S1, +S2. Absent: diastolic murmur, gallop, rubs, systolic murmur - GI/Abdominal GI/Abdominal exam: Present: normal bowel sounds, soft, no peritoneal signs. Absent: distended, tenderness - Extremities Exam Extremities exam: Present: tenderness (right hip ), warm, radial pulses palpable and symetrical. Absent: calf tenderness, cyanotic, pedal edema - Skin Skin exam: Present: dry, intact - VTE Documentation of Mechanical Device: Intermittent pneumatic compression device
--- NOTE | 2016-10-07 10:28 | Physician Discharge Referral ---
ExtendedCare Referral Info Provider in Charge after Transfer: PCP Institutional Level of Care: Skilled - Diagnosis (1) Hip fracture Priority: Primary Status: Acute (2) Chronic kidney disease, stage III (moderate) Priority: Secondary Status: Chronic (3) Dementia Priority: Secondary Status: Chronic Prognosis: Fair Aware of Diagnosis: Family Aware of Prognosis: Family - Transfer Medications Prescriptions: Tramadol HCl [Ultram] 50 mg PO Q4HR PRN #20 PRN Reason: Pain Home Medications: ALPRAZolam [Xanax 0.5 MG Tablet] 0.5 mg PO BID 10/05/16 [History] Acetaminophen [Tylenol 650mg SUPP] 650 mg RC Q6HR PRN 10/05/16 [History] Bisacodyl [Dulcolax] 10 mg RC DAILY PRN 10/05/16 [History] Diltiazem HCl [Diltiazem ER] 120 mg PO DAILY 10/05/16 [History] Furosemide [Lasix] 20 mg PO DAILY 10/05/16 [History] Hyoscyamine SL [Levsin Sl] 0.125 mg SL Q2HR PRN 10/05/16 [History] LORazepam [Lorazepam Intensol] 0.5 mg SL Q4HR PRN 10/05/16 [History] Promethazine [Phenergan] 25 mg RC Q12HR PRN 10/05/16 [History] Sertraline [Zoloft] 25 mg PO DAILY 10/05/16 [History] cloNIDine HCl [CloNIDine HCl] 0.1 mg PO Q6HR PRN 10/05/16 [History] Enoxaparin [Lovenox] 30 mg SQ 0600 14 Days 10/07/16 [Rx] Tramadol HCl [Ultram] 50 mg PO Q4HR PRN #20 10/07/16 [Rx] Allergies/Adverse Reactions: Allergies aspirin Allergy (Verified 11/04/15 21:58) Rash Chlorphentermine Allergy (Verified 11/04/15 21:58) See Comments Patient unsure clarithromycin Allergy (Verified 11/04/15 21:58) See Comments Patient unsure codeine Allergy (Verified 11/04/15 21:58) See Comments patient unsure dextromethorphan Allergy (Verified 11/04/15 21:58) See Comments patient unsure Erythromycin Base Allergy (Verified 11/04/15 21:58) See Comments patient unsure guaifenesin Allergy (Verified 11/04/15 21:58) See Comments pt unsure Iodinated Contrast- Oral and IV Dye [Iodinated Contrast Media - IV Dye] Allergy (Verified 11/04/15 21:58) Itching pt unsure Macrolide Antibiotics Allergy (Verified 11/04/15 21:58) See Comments pt unsure meperidine Allergy (Verified 11/04/15 21:58) See Comments pt unsure Morpholine Analogues Allergy (Verified 11/04/15 21:58) See Comments pt unsure naproxen Allergy (Verified 11/04/15 21:58) See Comments pt unsure NSAIDS (Non-Steroidal Anti-Inflamma Allergy (Verified 11/04/15 21:58) See Comments pt unsure Oxycodone Allergy (Verified 11/04/15 21:58) See Comments pt unsure Penicillins Allergy (Verified 11/04/15 21:58) See Comments pt unsure phenylpropanolamine Allergy (Verified 11/04/15 21:58) See Comments pt unsure Sulindac Allergy (Verified 11/04/15 21:58) See Comments pt unsure tolmetin Allergy (Verified 11/04/15 21:58) See Comments pt unsure - Respiratory Orders Smoking Cessation: Smoking cessation has been advised. For more information, call the [employer] Tobacco Quit Line at 8-550-DDNP-NOW. - Ancillary Orders May consult with Dentist, Director Electronics, Travel Professional PRN - Advance Directives Code Status: DNR-Arrest/Don't Intubate - Mobility Orders Other (per PT eval) - Rehabiliation Orders Rehab Potential: Fair Rehab Orders: Evaluation for Physical Therapy, Evaluation for Occupational Therapy - Diet Orders No Concentrated Sweets, Renal, Cardiac (and diabetic) CERTIFICATION: I certify that the transfer of the above named patient to an Extended Care Facility is necessary for the continuing treatment of the diagnosis listed. The above information is true and accurate reflection of patient's current condition. Confidential - Redisclosure prohibited without a patient's written consent.
--- NOTE | 2016-10-07 11:51 | Electrocardiograph Report ---
[place] [id number] Test Date: 2016-10-05 Pat Name: Bebe Ruth Department: 115 Room: 3A21 Gender: F [employer]: [id number] : 1930 Requested By: Tommie Fitzpatrick Order Number: [id number] Reading MD: Cas Fraser MD Measurements Intervals [place] Rate: 75 P: 91 IN: 165 QRS: 9 QRSD: 102 T: 54 QT: 392 QTc: 420 Interpretive Statements SINUS RHYTHM INCOMPLETE RIGHT BUNDLE BRANCH BLOCK Electronically Signed On 10-07-2016 11:50:11 EDT by Cas Fraser MD
== END 2016-10-07 13:30 | DRG 481 ==
LOC: 3ANU 22:23 → EMEROO 22:23 → SUATTDRO 10-05 01:26 → 3ANU 10-05 01:39
PROVIDERS: ADMIT Family Medicine; ATTEND Internal Medicine